=== PATIENT | male | born 1945 | race African-American/Black ===

== ENCOUNTER 2016-10-10 04:34 | Observation (INO) | payer OTHER ==
[2016-10-10] VITALS (9 sets, daily range): BP systolic 117–160; BP diastolic 74–101; PULSE 61–80; RESP 16–23; TEMP 97.6–98.4; O2SAT 97–99
[~2016-10-10] VITALS: Ht 182.9 cm; Wt 115.0 kg
[2016-10-10] MEDS ORDERED: LISI-515 PO (05:49)
[2016-10-10] MEDS ORDERED: ATOR40TA16 PO (05:49)
[2016-10-10] MEDS ORDERED: ASPI1TAB69 PO (05:49)
[2016-10-10] MEDS ORDERED: AMLO10TA2 PO (05:49)
[2016-10-10] MEDS ORDERED: CARV25TA PO (05:49)
[2016-10-10] MEDS ORDERED: ONDANSETRON HCL 4 MG/2 ML VIAL IVP ONE (06:00)
[2016-10-10] MEDS ORDERED: SODIUM CHLORIDE 0.9% FLUSH 5 ML FLUSH IVF PRN (06:00)
--- NOTE | 2016-10-10 06:07 | PD ---
HPI Chief Complaint: Abdominal Pain Time Seen by Provider: 06:01 Travel History International Travel<30 days: No Contact w/Intl Traveler<30days: No Traveled to known affect area: No History of Present Illness HPI 71-year-old male with history of previous NH, presents to the ER today for 2 days history of her umbilical abdominal pain which he currently rates at a 7 out of 10, nausea and vomiting. He denies any diarrhea, fevers, or any other symptoms. He does not know any exacerbating or alleviating factors. He does not know sick contacts or bad food exposure. Modifying Factors: None Associated Signs & Symptoms: Periumbilical abdominal pain, nausea, vomiting Risk Factors: None PFSH Past Medical History Medical History: Denies Significant Hx Cardiovascular Problems: Yes (BRADYCARDIA) High Cholesterol: Yes Diminished Hearing: No Hypertension: Yes Myocardial Infarction: Yes Tetanus Vaccination: Unknown Influenza Vaccination: No Past Surgical History Abdominal Surgery: Yes (EXPLOR. LAP.) Cardiac Surgery: Yes (PACEMAKER) Neurologic Surgery: Yes (L5 FUSION) Social History Alcohol Use: No Tobacco Use: No Substance Use: No Allergies-Medications (Allergen,Severity, Reaction): Coded Allergies: No Known Allergies (Unverified , 10/10/16) Reported Meds & Prescriptions Reported Meds & Active Scripts Active Reported Atorvastatin (Atorvastatin Calcium) 40 Mg Tab 40 Mg PO HS Amlodipine (Amlodipine Besylate) 10 Mg Tab 10 Mg PO DAILY Carvedilol 25 Mg Tab 25 Mg PO BID Aspirin 81 Mg Tabdr 81 Mg PO DAILY Lisinopril 20 Mg Tab 20 Mg PO DAILY Review of Systems Except as stated in HPI: all other systems reviewed are Neg Physical Exam Narrative GENERAL: Well-nourished, well-developed elderly -[place] Citizen male patient in no acute distress. SKIN: Warm and dry. HEAD: Normocephalic. EYES: No scleral icterus. No injection or drainage. NECK: Supple, trachea midline. CARDIOVASCULAR: Regular rate and rhythm without murmurs, gallops, or rubs. RESPIRATORY: Breath sounds equal bilaterally. No accessory muscle use. GASTROINTESTINAL: Abdomen soft, periumbilical tenderness without guarding or rebound, nondistended. No masses. MUSCULOSKELETAL: No cyanosis, or edema. BACK: Nontender without obvious deformity. No CVA tenderness. NEUROLOGICAL: Awake and alert. Cranial nerves II through XII intact. Motor and sensory grossly within normal limits. Five out of 5 muscle strength in all muscle groups. Normal speech. Data Data Last Documented VS Vital Signs Date Time Temp Pulse Resp B/P Pulse Ox O2 Delivery O2 Flow Rate FiO2 10/10/16 06:15 62 16 128/90 98 Room Air 10/10/16 04:37 97.6 Orders Complete Blood Count With Diff (10/10/16 05:52) Comprehensive Metabolic Panel (10/10/16 05:52) Lipase (10/10/16 05:52) Urinalysis - C+S If Indicated (10/10/16 05:52) Iv Access Insert/Monitor (10/10/16 05:52) Ecg Monitoring (10/10/16 05:52) Oximetry (10/10/16 05:52) Ondansetron Inj (Zofran Inj) (10/10/16 06:00) Sodium Chloride 0.9% Flush (Ns Flush) (10/10/16 06:00) Electrocardiogram (10/10/16 05:52) Sodium Chlorid 0.9% 500 Ml Inj (Ns 500 M (10/10/16 06:15) Ct Abd/Pel W Iv Contrast(Rout) (10/10/16 06:01) Beta Hydroxybutyrate (Acetone) (10/10/16 06:40) Insulin Human Regular Inj (Novolin R Inj (10/10/16 06:45) Labs Laboratory Tests Test 10/10/16 05:55 White Blood Count 12.6 TH/MM3 Red Blood Count 5.41 MIL/MM3 Hemoglobin 16.4 GM/DL Hematocrit 47.2 % Mean Corpuscular Volume 87.2 FL Mean Corpuscular Hemoglobin 30.3 PG Mean Corpuscular Hemoglobin 34.7 % Concent Red Cell Distribution Width 14.1 % Platelet Count 217 TH/MM3 Mean Platelet Volume 9.7 FL Neutrophils (%) (Auto) 88.2 % Lymphocytes (%) (Auto) 8.0 % Monocytes (%) (Auto) 3.4 % Eosinophils (%) (Auto) 0.1 % Basophils (%) (Auto) 0.3 % Neutrophils # (Auto) 11.1 TH/MM3 Lymphocytes # (Auto) 1.0 TH/MM3 Monocytes # (Auto) 0.4 TH/MM3 Eosinophils # (Auto) 0.0 TH/MM3 Basophils # (Auto) 0.0 TH/MM3 CBC Comment DIFF FINAL Differential Comment Sodium Level 136 MEQ/L Potassium Level 4.7 MEQ/L Chloride Level 100 MEQ/L Carbon Dioxide Level 24.0 MEQ/L Anion Gap 12 MEQ/L Blood Urea Nitrogen 18 MG/DL Creatinine 1.47 MG/DL Estimat Glomerular Filtration 57 ML/MIN Rate Random Glucose 459 MG/DL Calcium Level 9.5 MG/DL Total Bilirubin 1.0 MG/DL Aspartate Amino Transf 12 U/L (AST/SGOT) Alanine Aminotransferase 21 U/L (ALT/SGPT) Alkaline Phosphatase 145 U/L Total Protein 8.2 GM/DL Albumin 4.3 GM/DL Lipase 173 U/L [facility] Medical Decision Making Medical Screen Exam Complete: Yes Emergency Medical Condition: Yes Medical Record Reviewed: Yes Interpretation(s) EKG shows a paced rhythm at a rate of 66 bpm with no signs of acute ST-T changes. Laboratory Tests Test 10/10/16 05:55 White Blood Count 12.6 TH/MM3 (4.0-11.0) Neutrophils (%) (Auto) 88.2 % (16.0-70.0) Lymphocytes (%) (Auto) 8.0 % (9.0-44.0) Neutrophils # (Auto) 11.1 TH/MM3 (1.8-7.7) Creatinine 1.47 MG/DL (0.60-1.30) Estimat Glomerular Filtration 57 ML/MIN (>89) Rate Random Glucose 459 MG/DL (74-106) Aspartate Amino Transf 12 U/L (15-37) (AST/SGOT) Alkaline Phosphatase 145 U/L (45-117) Differential Diagnosis Periumbilical abdominal pain with nausea and vomitinggastroenteritis versus gastritis versus pancreatitis versus obstruction versus acute intra-abdominal processes Narrative Course Lab work shows significant hyperglycemia. IV fluids and insulin was given to the patient. He has no previous history of diabetes. CAT scan was ordered for further evaluation of abdominal pain. Physician Communication Physician Communication Case is signed out to Dr. Holliday at 7 AM awaiting CAT scan for further treatment. Diagnosis Primary Impression: HYPERGLYCEMIA, UNSPECIFIED Additional Impression: Abdominal pain Admitting Information Admitting Physician Requests: Admit Britt Thornton MD Oct 10, 2016 06:07
[2016-10-10 06:15] LABS: AUTOMATED NEUTROPHIL # 11.1 TH/MM3 (1.8-7.7); BASOPHIL % 0.3 % (0.0-2.0); EOSINOPHIL % 0.1 % (0.0-4.0); HEMATOCRIT 47.2 % (39.0-51.0); HEMO FLAGS DIFF FINAL; MEAN CELL VOLUME 87.2 FL (80.0-100.0); MEAN CORPUSCULAR HEMOGLOBIN 30.3 PG (27.0-34.0); MEAN CORPUSCULAR HGB CONC 34.7 % (32.0-36.0); MONO % 3.4 % (0.0-8.0); NEUT % 88.2 % (16.0-70.0); PLATELET COUNT 217 TH/MM3 (150-450); RED BLOOD COUNT 5.41 MIL/MM3 (4.50-5.90); RED CELL DISTRIBUTION WIDTH 14.1 % (11.6-17.2); WHITE BLOOD COUNT 12.6 TH/MM3 (4.0-11.0)
[2016-10-10] MEDS ORDERED: SODIUM CHLORID 0.9% 500 ML INJ 500 ML IV ONE (06:15)
[2016-10-10 06:40] LABS: ALKALINE PHOSPHATASE 145 U/L (45-117); ALT (GPT) 21 U/L (12-78); ANION GAP 12 MEQ/L (5-15); AST (GOT) 12 U/L (15-37); BLOOD UREA NITROGEN 18 MG/DL (7-18); CHLORIDE 100 MEQ/L (98-107); GLOMERULAR FILTRATION RATE 57 ML/MIN (>89); POTASSIUM 4.7 MEQ/L (3.5-5.1); SODIUM (NA) 136 MEQ/L (136-145)
[2016-10-10] MEDS ORDERED: INSULIN HUMAN REGULAR 1,000 UNITS/10 ML VIAL IV PUSH ONE (06:45)
[2016-10-10] MEDS ORDERED: IOHEXOL 350 MG/ML 10 ML VIAL (for RAD DIAG) IV ONE (07:25)
--- NOTE | 2016-10-10 07:42 | RADRPT ---
EXAM DATE/TIME: 10/10/2016 07:20 [place] COMPARISON: No previous studies available for comparison. INDICATIONS : Mid abdominal pain and vomiting for 1 day IV CONTRAST: 93 cc Omnipaque 350 (iohexol) IV ORAL CONTRAST: No oral contrast ingested. RADIATION DOSE: 16.94 CTDIvol (mGy) MEDICAL HISTORY : Hypertension. SURGICAL HISTORY : Pacemaker. lumbar fusion ENCOUNTER: Initial ACUITY: 1 day PAIN SCALE: 5/10 LOCATION: upper quadrant abdomen TECHNIQUE: Volumetric scanning of the abdomen and pelvis was performed. Using automated exposure control and ad justment of the mA and/or kV according to patient size, radiation dose was kept as low as reasonably achievable to obtain optimal diagnostic quality images. FINDINGS: LOWER LUNGS: The visualized lower lungs are clear. Pacing wires are present in the right heart. LIVER: Liver density is suggestive of steatosis. No focal lesion is seen. There are stones in the gallbladde r. There is no dilation of the biliary tree. No calcified gallstones. SPLEEN: Normal size without lesion. PANCREAS: Within normal limits. KIDNEYS: Normal in size and shape. There is no mass, stone or hydronephrosis. There is a 4.3 cm low-density l esion the left kidney with density measurements characteristic of a simple cyst. ADRENAL GLANDS: There is mild thickening of the adrenal glands bilaterally with a hypodense nodule in the left body m easuring 8 mm. Hounsfield measurements are 31. VASCULAR: There is no aortic aneurysm. There is mild atherosclerotic disease. BOWEL/MESENTERY: The stomach and proximal small bowel demonstrate no abnormality. There is a segmental area of distal jejunum or proximal ileum in the pelvis measuring up to 2.9 cm. Distal ileum is normal in size. Termi nal ileum and appendix are normal. There is mild sigmoid diverticulosis. There is no free air or free fluid. ABDOMINAL WALL: There is a metallic foreign body along the right anterior abdominal wall measuring approximately 2.1 cm. RETROPERITONEUM: There is no lymphadenopathy. BLADDER: No wall thickening or mass. REPRODUCTIVE: Within normal limits. INGUINAL: There is no lymphadenopathy or hernia. MUSCULOSKELETAL: There are degenerative changes of the lumbar spine with posterior element fusion inferiorly. Bone gra ft harvest site is present in the left posterior iliac bone. CONCLUSION: 1. No definite abnormality is identified to explain clinical symptoms. There is a segmental area of m ildly distended fluid-filled small bowel in the pelvis representing either distal jejunum or proximal ileum. However, there are no other findings otherwise to suggest bowel obstruction. Suggest performi ng followup imaging if clinical symptoms do not resolve. 2. There is an 8mm nodule the left adrenal gland. The small size strongly favors a benign process. It does not meet criteria for an adenoma on this examination. Suggest correlation with prior imaging st udies to confirm stability. If none are available consider followup in 6 months. 3. Nonacute findings include hepatic steatosis, cholelithiasis, 4.3 cm left renal cyst, and mild sigm oid diverticulosis. Emile Bermudez MD on October 10, 2016 at 7:33 Board Certified Radiologist. This report was verified electronically.
[2016-10-10 07:44] LABS: BLOOD, URINE NEG (NEG); GLUCOSE,URINE 1000 mg/dL (NEG); KETONE, URINE 40 mg/dL (NEG); NITRITE,URINE NEG (NEG); URINE COLOR YELLOW (YELLW/STRAW)
[2016-10-10 07:46] LABS: COMMENT (UR) CULT NOT INDICATED; CULTURE IF INDICATED CULT NOT INDICATED
--- NOTE | 2016-10-10 07:58 | PD ---
Physical Exam Narrative GENERAL: Well-nourished, well-developed patient. SKIN: Warm and dry. HEAD: Normocephalic and atraumatic. EYES: No injection or drainage. ENT: No nasal drainage noted. NECK: Supple, trachea midline. CARDIOVASCULAR: Regular rate and rhythm RESPIRATORY: no increased effort. No accessory muscle use. GASTROINTESTINAL: Abdomen soft, non-tender, nondistended. NEUROLOGICAL: Awake and alert. Motor and sensory grossly within normal limits. Normal speech. Data Data Last Documented VS Vital Signs Date Time Temp Pulse Resp B/P Pulse Ox O2 Delivery O2 Flow Rate FiO2 10/10/16 06:15 62 16 128/90 98 Room Air 10/10/16 04:37 97.6 Orders Complete Blood Count With Diff (10/10/16 05:52) Comprehensive Metabolic Panel (10/10/16 05:52) Lipase (10/10/16 05:52) Urinalysis - C+S If Indicated (10/10/16 05:52) Iv Access Insert/Monitor (10/10/16 05:52) Ecg Monitoring (10/10/16 05:52) Oximetry (10/10/16 05:52) Ondansetron Inj (Zofran Inj) (10/10/16 06:00) Sodium Chloride 0.9% Flush (Ns Flush) (10/10/16 06:00) Electrocardiogram (10/10/16 05:52) Sodium Chlorid 0.9% 500 Ml Inj (Ns 500 M (10/10/16 06:15) Ct Abd/Pel W Iv Contrast(Rout) (10/10/16 06:01) Beta Hydroxybutyrate (Acetone) (10/10/16 06:40) Insulin Human Regular Inj (Novolin R Inj (10/10/16 06:45) Iohexol 350 Inj (Omnipaque 350 Inj) (10/10/16 07:25) Blood Glucose (10/10/16 07:50) Admit Order (Ed Use Only) (10/10/16 08:13) Labs Laboratory Tests Test 10/10/16 10/10/16 10/10/16 05:55 07:00 07:01 White Blood Count 12.6 TH/MM3 Red Blood Count 5.41 MIL/MM3 Hemoglobin 16.4 GM/DL Hematocrit 47.2 % Mean Corpuscular Volume 87.2 FL Mean Corpuscular Hemoglobin 30.3 PG Mean Corpuscular Hemoglobin 34.7 % Concent Red Cell Distribution Width 14.1 % Platelet Count 217 TH/MM3 Mean Platelet Volume 9.7 FL Neutrophils (%) (Auto) 88.2 % Lymphocytes (%) (Auto) 8.0 % Monocytes (%) (Auto) 3.4 % Eosinophils (%) (Auto) 0.1 % Basophils (%) (Auto) 0.3 % Neutrophils # (Auto) 11.1 TH/MM3 Lymphocytes # (Auto) 1.0 TH/MM3 Monocytes # (Auto) 0.4 TH/MM3 Eosinophils # (Auto) 0.0 TH/MM3 Basophils # (Auto) 0.0 TH/MM3 CBC Comment DIFF FINAL Differential Comment Sodium Level 136 MEQ/L Potassium Level 4.7 MEQ/L Chloride Level 100 MEQ/L Carbon Dioxide Level 24.0 MEQ/L Anion Gap 12 MEQ/L Blood Urea Nitrogen 18 MG/DL Creatinine 1.47 MG/DL Estimat Glomerular Filtration 57 ML/MIN Rate Random Glucose 459 MG/DL Calcium Level 9.5 MG/DL Total Bilirubin 1.0 MG/DL Aspartate Amino Transf 12 U/L (AST/SGOT) Alanine Aminotransferase 21 U/L (ALT/SGPT) Alkaline Phosphatase 145 U/L Total Protein 8.2 GM/DL Albumin 4.3 GM/DL Lipase 173 U/L Urine Color YELLOW Urine Turbidity CLEAR Urine pH 6.0 Urine Specific [place] 1.035 Urine Protein TRACE mg/dL Urine Glucose (UA) 1000 mg/dL Urine Ketones 40 mg/dL Urine Occult Blood NEG Urine Nitrite NEG Urine Bilirubin NEG Urine Urobilinogen LESS THAN 2.0 MG/DL Urine Leukocyte Esterase NEG Urine RBC LESS THAN 1 /hpf Urine WBC 1 /hpf Microscopic Urinalysis Comment CULT NOT INDICATED B-Hydroxybutyrate 1.81 MMOL/L [facility] Supervised Visit with JUSTIN: No Interpretation(s) CBC & BMP Diagram 10/10/16 05:55 Last 24 hours Impressions Abdomen/Pelvis CT 10/10/16 0601 Signed Impressions: Service Date/Time: Monday, October 10, 2016 07:20 - CONCLUSION: 1. No definite abnormality is identified to explain clinical symptoms. There is a segmental area of mildly distended fluid-filled small bowel in the pelvis representing either distal jejunum or proximal ileum. However, there are no other findings otherwise to suggest bowel obstruction. Suggest performing followup imaging if clinical symptoms do not resolve. 2. There is an 8mm nodule the left adrenal gland. The small size strongly favors a benign process. It does not meet criteria for an adenoma on this examination. Suggest correlation with prior imaging studies to confirm stability. If none are available consider followup in 6 months. 3. Nonacute findings include hepatic steatosis, cholelithiasis, 4.3 cm left renal cyst, and mild sigmoid diverticulosis. Emile Bermudez MD Narrative Course Signed over to me to follow urine and CAT scan and admitted for new onset diabetes. Patient updated about blood work and CAT scan and agrees to observation. He denies prior history of diabetes. He states his abdominal pain is better. Repeat Accu-Chek after insulin is [address] Phys[address] Communication Phys[address] Communication dr serrano agrees to admit Diagnosis Primary Impression: HYPERGLYCEMIA, UNSPECIFIED Additional Impression: Abdominal pain Qualified Code: R10.9 - Abdominal pain, unspecified location Admitting Information Admitting Physician Requests: Observation Lindsay Holliday MD Oct 10, 2016 07:58
[2016-10-10] MEDS ORDERED: GLUCAGON 1 MG/ML VIAL OTHER PRN (08:15)
[2016-10-10] MEDS ORDERED: DEXTROSE 50% IN WATER 50 ML VIAL(D50) IV PUSH PRN (08:15)
--- NOTE | 2016-10-10 09:38 | EKG ---
Date Performed: 10/10/2016 Time Performed: 06:11:18 PTAGE: 71 years EKG: ELECTRONIC ATRIAL PACEMAKER ELECTRONIC VENTRICULAR PACEMAKER ABNORMAL RHYTHM ECG NO PREVIOUS TRACING DOCTOR: Ananth Aguirre Interpretating Date/Time 10/10/2016 09:35:46
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
[2016-10-10] MEDS: SODIUM CHLOR 0.9% 1000 ML INJ 1,000 ML IV SCH ×2 (10:54→19:00)
[2016-10-10] MEDS: LISINOPRIL 20 MG TAB PO SCH (11:17)
[2016-10-10] MEDS: ENOXAPARIN SODIUM 40 MG/0.4 ML SYRINGE SQ SCH (11:17)
[2016-10-10] MEDS: ASPIRIN EC 81 MG TABEC PO SCH (11:17)
[2016-10-10] MEDS: INSULIN ASPART SUPPLEMENTAL SCALE SQ SCH ×3 (11:18→22:11)
[2016-10-10] MEDS ORDERED: HYDR-3366 PO (15:27)
[2016-10-10] MEDS: ACETAMINOPHEN/HYDROcodone 325 MG/10 MG TAB PO PRN (18:03)
[2016-10-10] MEDS: CARVEDILOL 12.5 MG TAB PO SCH (22:05)
[2016-10-10] MEDS: ATORVASTATIN 40 MG TAB PO SCH (22:05)
[2016-10-11] VITALS (7 sets, daily range): BP systolic 101–132; BP diastolic 68–89; PULSE 64–83; RESP 14–21; TEMP 97.6–98.8; O2SAT 94–98
[2016-10-11] MEDS: SODIUM CHLOR 0.9% 1000 ML INJ 1,000 ML IV SCH ×2 (03:54→15:00)
[2016-10-11 05:33] LABS: AUTOMATED NEUTROPHIL # 5.4 TH/MM3 (1.8-7.7); BASOPHIL % 0.5 % (0.0-2.0); EOSINOPHIL # 0.2 TH/MM3 (0-0.4); EOSINOPHIL % 2.2 % (0.0-4.0); HEMATOCRIT 41.1 % (39.0-51.0); HEMO FLAGS DIFF FINAL; LYMPH % 25.2 % (9.0-44.0); LYMPHOCYTE # 2.2 TH/MM3 (1.0-4.8); MEAN CELL VOLUME 88.8 FL (80.0-100.0); MEAN CORPUSCULAR HEMOGLOBIN 30.5 PG (27.0-34.0); MEAN CORPUSCULAR HGB CONC 34.4 % (32.0-36.0); MONO % 9.3 % (0.0-8.0); NEUT % 62.8 % (16.0-70.0); PLATELET COUNT 183 TH/MM3 (150-450); RED BLOOD COUNT 4.63 MIL/MM3 (4.50-5.90); RED CELL DISTRIBUTION WIDTH 13.8 % (11.6-17.2); WHITE BLOOD COUNT 8.6 TH/MM3 (4.0-11.0)
[2016-10-11 05:49] LABS: POTASSIUM 4.1 MEQ/L (3.5-5.1)
[2016-10-11] MEDS: INSULIN ASPART SUPPLEMENTAL SCALE SQ SCH ×4 (06:20→20:54)
[2016-10-11] MEDS: ACETAMINOPHEN/HYDROcodone 325 MG/10 MG TAB PO PRN (06:25)
[2016-10-11] MEDS: ASPIRIN EC 81 MG TABEC PO SCH (09:29)
[2016-10-11] MEDS: LISINOPRIL 20 MG TAB PO SCH (09:29)
[2016-10-11] MEDS: CARVEDILOL 12.5 MG TAB PO SCH ×2 (09:30→20:53)
--- NOTE | 2016-10-11 12:28 | HHI.PR ---
Subjective Remarks overall doing fine. blood sugar levels still elevated. no abdominal pain,nausea or vomiting. d/w the RN. Objective Vitals Vital Signs Date Time Temp Pulse Resp B/P Pulse Ox O2 Delivery O2 Flow Rate FiO2 10/11/16 10:59 98.7 72 14 126/84 95 10/11/16 07:29 97.6 68 16 112/69 95 10/11/16 07:29 20 10/11/16 05:51 98.8 68 21 117/89 98 10/11/16 00:57 98.7 64 18 101/70 94 10/10/16 19:36 98.4 62 21 117/74 98 10/10/16 16:58 98.2 64 20 140/79 97 10/10/16 13:49 61 18 120/79 97 Room Air I/O 10/10/16 10/10/16 10/10/16 10/11/16 10/11/16 10/11/16 07:00 15:00 23:00 07:00 15:00 23:00 Output Total 300 ml Balance -300 ml Output Urine Total 300 ml # Voids 1 Result Diagram: 10/11/16 0419 10/11/16 0409 Imaging Last Impressions Abdomen/Pelvis CT 10/10/16 0601 Signed Impressions: Service Date/Time: Monday, October 10, 2016 07:20 - CONCLUSION: 1. No definite abnormality is identified to explain clinical symptoms. There is a segmental area of mildly distended fluid-filled small bowel in the pelvis representing either distal jejunum or proximal ileum. However, there are no other findings otherwise to suggest bowel obstruction. Suggest performing followup imaging if clinical symptoms do not resolve. 2. There is an 8mm nodule the left adrenal gland. The small size strongly favors a benign process. It does not meet criteria for an adenoma on this examination. Suggest correlation with prior imaging studies to confirm stability. If none are available consider followup in 6 months. 3. Nonacute findings include hepatic steatosis, cholelithiasis, 4.3 cm left renal cyst, and mild sigmoid diverticulosis. Emile Bermudez MD Objective Remarks GENERAL: This is a well-nourished, well-developed patient, in no apparent distress. CARDIOVASCULAR: Regular rate and regular rhythm without murmurs, gallops, or rubs. RESPIRATORY: Clear to auscultation. Breath sounds equal bilaterally. No wheezes , rales, or rhonchi. GASTROINTESTINAL: Abdomen soft, non-tender, nondistended. Normal, active bowel sounds MUSCULOSKELETAL: Extremities without clubbing, cyanosis, or edema. NEURO: Alert & Oriented x4 to person, place, time, situation. Moves all ext x4 Procedures none Medications and IVs Current Medications Ondansetron HCl (Zofran Inj) 4 mg ONCE ONCE IVP Last administered on 10/10/16 06:15; Start 10/10/16 at 06:00; Stop 10/10/16 at 06:01; Status DC IV Flush 2 ml 2 ml UNSCH PRN IVF FLUSH AFTER USING IV ACCESS; Start 10/10/16 at 06:00 Sodium Chloride (NS 500 ml Inj) 500 ml @ 500 mls/hr BOLUS ONCE IV Last administered on 10/10/16 06:15; Start 10/10/16 at 06:15; Stop 10/10/16 at 07:14; Status DC Insulin Human Regular (NovoLIN R INJ) 4 units ONCE ONCE IV PUSH Last administered on 10/10/16 06:50; Start 10/10/16 at 06:45; Stop 10/10/16 at 06:46; Status DC Iohexol (Omnipaque 350 Inj) 93 ml STK-MED ONCE IV Last administered on 07:25; Start 10/10/16 at 07:25; Stop 10/10/16 at 07:26; Status DC Dextrose (D50w (Vial) Inj) 25 ml UNSCH PRN IV PUSH HYPOGLYCEMIA-SEE COMMENTS; Start 10/10/16 at 08:15 Glucagon (Glucagon Inj) 1 mg UNSCH PRN OTHER HYPOGLYCEMIA-SEE COMMENTS; Start 10/10/16 at 08:15 Insulin Aspart 1 1 ACHS SLIDING SCALE SQ Last administered on 10/11/16 06:20; Start 10/10/16 at 11:00 Sodium Chloride (NS 1000 ml Inj) 1,000 ml @ 100 mls/hr Q10H IV Last administered on 10/10/16 10:54; Start 10/10/16 at 09:00 Amlodipine Besylate (Norvasc) 10 mg DAILY PO Last administered on 10/11/16 09: 29; Start 10/10/16 at 10:30 Aspirin (Ecotrin Ec) 81 mg DAILY PO Last administered on 10/11/16 09:29; Start 10/10/16 at 10:30 Atorvastatin Calcium (Lipitor) 40 mg HS PO Last administered on 10/10/16 22:05 ; Start 10/10/16 at 21:00 Carvedilol (Coreg) 25 mg BID PO Last administered on 10/11/16 09:30; Start 10/10 at 21:00 Lisinopril (Prinivil) 20 mg DAILY PO Last administered on 10/11/16 09:29; Start 10/10/16 at 11:00 Enoxaparin Sodium (Lovenox Inj) 40 mg Q24H SQ Last administered on 10/10/16 11: 17; Start 10/10/16 at 11:00 Acetaminophen/ Hydrocodone Bitart (Robert 10-325 Mg) 1 tab Q8H PRN PO PAIN SCALE 1 TO 10 Last administered on 10/11/16 06:25; Start 10/10/16 at 18:00 A/P Assessment and Plan New onset diabetes type 2 - Abdominal pain associated with nausea vomiting 2 days. Resolved on exam. - CT of the abdomen and pelvis showed 1. No definite abnormalities identified to explain clinical symptoms. There is a segmental area of mildly distended fluidfields small bowel in the pelvis representing either distal jejunum or proximal ileum. However, there are no other findings otherwise to suggest bowel obstruction. Suggest performing follow-up imaging if clinical symptoms do not resolve. 2. There is an 8 mL nodule in the left adrenal gland. The small size strongly favors a benign process. It does not meet criteria for an adenoma on this examination. Suggest correlation with prior imaging studies to confirm stability. If not available consider follow-up in 6 months. 3. Non-acute findings include hepatic steatosis, cholelithiasis, 4.3 cm left renal cyst, and mild sigmoid diverticulosis. -A1c 10.8. - community educator consulted -start long-acting insulin- continue accu-check with SSI. - Discussed with patient new diagnosis. Discussed risk factors secondary to diagnosis. Discussed treatment plan. Agreeable. renal insufficiency with unknown duration- suspect CKD due to diabetes- f/u as outpatient. HTN HLD - Continue home meds lisinopril 20 mg daily, carvedilol 25 mg twice a day, lisinopril 20 mg daily, amlodipine 10 mg daily, ASA 81 mg, atorvastatin 40 mg daily - Monitor BP trend - Patient being followed by Dr. Brooks and Dr. Resendiz in outpatient DVT prop Lovenox daily Discharge Planning possible dc home in am if stable. Trace Hidalgo MD Oct 11, 2016 12:28
[2016-10-11] MEDS ORDERED: NOVOLOGSS SQ (12:30)
[2016-10-11] MEDS: ENOXAPARIN SODIUM 40 MG/0.4 ML SYRINGE SQ SCH (12:33)
--- NOTE | 2016-10-11 12:35 | HHI.DCPOC ---
Discharge Care Plan Diagnosis: (1) New onset type 2 diabetes mellitus Your Health Problems Are: Fluctuating Blood Sugars Goals to Promote Your Health * To prevent worsening of your condition and complications * To maintain your health at the optimal level Directions to Meet Your Goals Take your medications as prescribed Follow your dietary instruction Follow activity as directed Keep your appointments as scheduled Take your immunizations and boosters as scheduled If your symptoms worsen call your PCP, if no PCP go to Urgent Care Center or Emergency Room Smoking is Dangerous to Your Health. Avoid second hand smoke Call the 24-hour hour crisis hotline for domestic abuse at Trace Hidalgo MD Oct 11, 2016 12:35
[2016-10-11] MEDS: INSULIN DETEMIR 100 UNITS/ML VIAL SQ SCH (14:38)
[2016-10-11] MEDS ORDERED: DOCUSATE SODIUM 100 MG CAP PO PRN (15:15)
[2016-10-11] MEDS ORDERED: MAGNESIUM HYDROXIDE SUSP 30 ML CUP PO PRN (15:15)
[2016-10-11] MEDS: ATORVASTATIN 40 MG TAB PO SCH (20:53)
[2016-10-12 03:45] VITALS: BP 132/85; PULSE 65; TEMP 98; O2SAT 95
[2016-10-12] MEDS: SODIUM CHLOR 0.9% 1000 ML INJ 1,000 ML IV SCH (05:29)
[2016-10-12] MEDS: INSULIN ASPART SUPPLEMENTAL SCALE SQ SCH ×2 (06:38→11:56)
[2016-10-12 07:08] VITALS: BP 135/87; PULSE 72; RESP 18; TEMP 98.1; O2SAT 96
[2016-10-12] MEDS: ASPIRIN EC 81 MG TABEC PO SCH (08:32)
[2016-10-12] MEDS: LISINOPRIL 20 MG TAB PO SCH (08:32)
[2016-10-12] MEDS: INSULIN DETEMIR 100 UNITS/ML VIAL SQ SCH (08:32)
[2016-10-12] MEDS: CARVEDILOL 12.5 MG TAB PO SCH (08:32)
[2016-10-12] MEDS: ACETAMINOPHEN/HYDROcodone 325 MG/10 MG TAB PO PRN (08:44)
--- NOTE | 2016-10-12 10:42 | HHI.PR ---
Subjective Remarks overall doing fine. no new complaints. wants to go home today. Objective Vitals Vital Signs Date Time Temp Pulse Resp B/P Pulse Ox O2 Delivery O2 Flow Rate FiO2 10/12/16 09:46 16 10/12/16 07:08 98.1 72 18 135/87 96 10/12/16 03:45 98.0 65 132/85 95 10/11/16 23:02 67 116/68 96 10/11/16 19:18 83 21 132/86 95 10/11/16 15:06 98.6 69 14 105/70 95 10/11/16 10:59 98.7 72 14 126/84 95 Result Diagram: 10/11/16 0419 10/12/16 0825 Imaging Last Impressions Abdomen/Pelvis CT 10/10/16 0601 Signed Impressions: Service Date/Time: Monday, October 10, 2016 07:20 - CONCLUSION: 1. No definite abnormality is identified to explain clinical symptoms. There is a segmental area of mildly distended fluid-filled small bowel in the pelvis representing either distal jejunum or proximal ileum. However, there are no other findings otherwise to suggest bowel obstruction. Suggest performing followup imaging if clinical symptoms do not resolve. 2. There is an 8mm nodule the left adrenal gland. The small size strongly favors a benign process. It does not meet criteria for an adenoma on this examination. Suggest correlation with prior imaging studies to confirm stability. If none are available consider followup in 6 months. 3. Nonacute findings include hepatic steatosis, cholelithiasis, 4.3 cm left renal cyst, and mild sigmoid diverticulosis. Emile Bermudez MD Objective Remarks GENERAL: This is a well-nourished, well-developed patient, in no apparent distress. CARDIOVASCULAR: Regular rate and regular rhythm without murmurs, gallops, or rubs. RESPIRATORY: Clear to auscultation. Breath sounds equal bilaterally. No wheezes , rales, or rhonchi. GASTROINTESTINAL: Abdomen soft, non-tender, nondistended. Normal, active bowel sounds MUSCULOSKELETAL: Extremities without clubbing, cyanosis, or edema. NEURO: Alert & Oriented x4 to person, place, time, situation. Moves all ext x4 Procedures none Medications and IVs Current Medications Ondansetron HCl (Zofran Inj) 4 mg ONCE ONCE IVP Last administered on 10/10/16 06:15; Start 10/10/16 at 06:00; Stop 10/10/16 at 06:01; Status DC IV Flush 2 ml 2 ml UNSCH PRN IVF FLUSH AFTER USING IV ACCESS; Start 10/10/16 at 06:00 Sodium Chloride (NS 500 ml Inj) 500 ml @ 500 mls/hr BOLUS ONCE IV Last administered on 10/10/16 06:15; Start 10/10/16 at 06:15; Stop 10/10/16 at 07:14; Status DC Insulin Human Regular (NovoLIN R INJ) 4 units ONCE ONCE IV PUSH Last administered on 10/10/16 06:50; Start 10/10/16 at 06:45; Stop 10/10/16 at 06:46; Status DC Iohexol (Omnipaque 350 Inj) 93 ml STK-MED ONCE IV Last administered on 07:25; Start 10/10/16 at 07:25; Stop 10/10/16 at 07:26; Status DC Dextrose (D50w (Vial) Inj) 25 ml UNSCH PRN IV PUSH HYPOGLYCEMIA-SEE COMMENTS; Start 10/10/16 at 08:15 Glucagon (Glucagon Inj) 1 mg UNSCH PRN OTHER HYPOGLYCEMIA-SEE COMMENTS; Start 10/10/16 at 08:15 Insulin Aspart 1 1 ACHS SLIDING SCALE SQ Last administered on 10/12/16 06:38; Start 10/10/16 at 11:00 Sodium Chloride (NS 1000 ml Inj) 1,000 ml @ 100 mls/hr Q10H IV Last administered on 10/12/16 05:29; Start 10/10/16 at 09:00 Amlodipine Besylate (Norvasc) 10 mg DAILY PO Last administered on 10/12/16 08: 32; Start 10/10/16 at 10:30 Aspirin (Ecotrin Ec) 81 mg DAILY PO Last administered on 10/12/16 08:32; Start 10/10/16 at 10:30 Atorvastatin Calcium (Lipitor) 40 mg HS PO Last administered on 10/11/16 20:53 ; Start 10/10/16 at 21:00 Carvedilol (Coreg) 25 mg BID PO Last administered on 10/12/16 08:32; Start 10/10 at 21:00 Lisinopril (Prinivil) 20 mg DAILY PO Last administered on 10/12/16 08:32; Start 10/10/16 at 11:00 Enoxaparin Sodium (Lovenox Inj) 40 mg Q24H SQ Last administered on 10/11/16 12: 33; Start 10/10/16 at 11:00 Acetaminophen/ Hydrocodone Bitart ([place]ris 10-325 Mg) 1 tab Q8H PRN PO PAIN SCALE 1 TO 10 Last administered on 10/12/16 08:44; Start 10/10/16 at 18:00 Insulin Detemir (Levemir Inj) 15 units DAILY SQ Last administered on 10/12/16 08:32; Start 10/11/16 at 13:00 Magnesium Hydroxide (Milk Of Dulce Liq) 30 ml DAILY PRN PO CONSTIPATION-USE FIRST Last administered on 10/11/16 15:10; Start 10/11/16 at 15:15 Docusate Sodium (Colace) 100 mg BID PRN PO CONSTIPATION Last administered on 15:11; Start 10/11/16 at 15:15 A/P Assessment and Plan New onset diabetes type 2 - Abdominal pain associated with nausea vomiting 2 days. Resolved on exam. - CT of the abdomen and pelvis showed 1. No definite abnormalities identified to explain clinical symptoms. There is a segmental area of mildly distended fluidfields small bowel in the pelvis representing either distal jejunum or proximal ileum. However, there are no other findings otherwise to suggest bowel obstruction. Suggest performing follow-up imaging if clinical symptoms do not resolve. 2. There is an 8 mL nodule in the left adrenal gland. The small size strongly favors a benign process. It does not meet criteria for an adenoma on this examination. Suggest correlation with prior imaging studies to confirm stability. If not available consider follow-up in 6 months. 3. Non-acute findings include hepatic steatosis, cholelithiasis, 4.3 cm left renal cyst, and mild sigmoid diverticulosis. -A1c 10.8. - paraeducator consulted -started long-acting insulin- continue accu-check with SSI. - Discussed with patient new diagnosis. Discussed risk factors secondary to diagnosis. Discussed treatment plan. Agreeable. -advised to lose weight/ follow the diabetic diet and monitor his blood sugar at home closely. renal insufficiency with unknown duration-improved- f/u as outpatient. HTN HLD - Continue home meds lisinopril 20 mg daily, carvedilol 25 mg twice a day, lisinopril 20 mg daily, amlodipine 10 mg daily, ASA 81 mg, atorvastatin 40 mg daily - Monitor BP trend - Patient being followed by Dr. Brooks and Dr. Resendiz in outpatient DVT prop Lovenox daily Discharge Planning dc home today. f/u; pcp. see med list. d/w the patient. Trace Hidalgo MD Oct 12, 2016 10:42
[2016-10-12] MEDS ORDERED: LEVEMIR SQ (10:44)
--- NOTE | 2016-10-12 10:45 | HHI.DS ---
Discharge Summary Admission Date Oct 10, 2016 at 08:15 Discharge Date: Oct 12, 2016 Admitting Diagnosis new onset diabetes, abdominal pain (1) Abdominal pain ICD Code: R10.9 Diagnosis: Principal (2) New onset type 2 diabetes mellitus ICD Code: E11.9 Diagnosis: Principal Procedures none Brief History - From Admission Patient is a 71-year-old male with primary medical history of hypertension, hyperlipidemia who came into the hospital for complaints of abdominal pain. States that abdominal pain started yesterday about 5:30 PM, he took some laxative and states it didn't help with the pain. He started vomiting at around 7 PM, last vomited at 4 AM prior to coming to the hospital. Abdominal pain is described as midepigastric, constant, nonradiating, not aggravated by movement, unrelieved by rest. Patient never radiates into the past 6 months he has been voiding continuously every day, he could barely make it to the bathroom. States he is leaking. He is planning to see his PCP and check his prostate. He also complains of being thirsty all the time. Denies any weight loss states he has been the same weight the whole entire time. Appetite is good and has been eating well. On exam, patient states his abdominal pain has been relieved, he has not vomited since he got to the hospital. He also denies any nausea on exam. Denies pain and discomfort. Denies SOB/ dyspnea. Denies chest pain, palpitations, headaches, dizziness. Denies fevers, chills, n/v/d. Denies dysuria, hematuria, hematemesis. Denies vision changes, hearing changes. CBC/BMP: 10/11/16 0419 10/12/16 0825 Significant Findings Laboratory Tests Test 10/10/16 10/10/16 10/10/16 10/11/16 05:55 07:00 07:01 04:09 White Blood Count 12.6 TH/MM3 (4.0-11.0) Neutrophils (%) (Auto) 88.2 % (16.0-70.0) Lymphocytes (%) (Auto) 8.0 % (9.0-44.0) Neutrophils # (Auto) 11.1 TH/MM3 (1.8-7.7) Creatinine 1.47 MG/DL 1.56 MG/DL (0.60-1.30) (0.60-1.30) Estimat Glomerular Filtration 57 ML/MIN (>89) 53 ML/MIN (>89) Rate Random Glucose 459 MG/DL 357 MG/DL (74-106) (74-106) Hemoglobin A1c 10.8 % (4.3-6.0) Aspartate Amino Transf 12 U/L (15-37) (AST/SGOT) Alkaline Phosphatase 145 U/L (45-117) Urine Glucose (UA) 1000 mg/dL (NEG) Urine Ketones 40 mg/dL (NEG) B-Hydroxybutyrate 1.81 MMOL/L (0.00-0.39) Blood Urea Nitrogen 19 MG/DL (7-18) Calcium Level 8.1 MG/DL (8.5-10.1) Test 10/11/16 10/12/16 04:19 08:25 Monocytes (%) (Auto) 9.3 % (0.0-8.0) Estimat Glomerular Filtration 75 ML/MIN (>89) Rate Imaging Last Impressions Abdomen/Pelvis CT 10/10/16 0601 Signed Impressions: Service Date/Time: Monday, October 10, 2016 07:20 - CONCLUSION: 1. No definite abnormality is identified to explain clinical symptoms. There is a segmental area of mildly distended fluid-filled small bowel in the pelvis representing either distal jejunum or proximal ileum. However, there are no other findings otherwise to suggest bowel obstruction. Suggest performing followup imaging if clinical symptoms do not resolve. 2. There is an 8mm nodule the left adrenal gland. The small size strongly favors a benign process. It does not meet criteria for an adenoma on this examination. Suggest correlation with prior imaging studies to confirm stability. If none are available consider followup in 6 months. 3. Nonacute findings include hepatic steatosis, cholelithiasis, 4.3 cm left renal cyst, and mild sigmoid diverticulosis. Emile Bermudez MD PE at Discharge GENERAL: This is a well-nourished, well-developed patient, in no apparent distress. CARDIOVASCULAR: Regular rate and regular rhythm without murmurs, gallops, or rubs. RESPIRATORY: Clear to auscultation. Breath sounds equal bilaterally. No wheezes , rales, or rhonchi. GASTROINTESTINAL: Abdomen soft, non-tender, nondistended. Normal, active bowel sounds MUSCULOSKELETAL: Extremities without clubbing, cyanosis, or edema. NEURO: Alert & Oriented x4 to person, place, time, situation. Moves all ext x4 Hospital Course New onset diabetes type 2 - Abdominal pain associated with nausea vomiting 2 days. Resolved on exam. - CT of the abdomen and pelvis showed 1. No definite abnormalities identified to explain clinical symptoms. There is a segmental area of mildly distended fluidfields small bowel in the pelvis representing either distal jejunum or proximal ileum. However, there are no other findings otherwise to suggest bowel obstruction. Suggest performing follow-up imaging if clinical symptoms do not resolve. 2. There is an 8 mL nodule in the left adrenal gland. The small size strongly favors a benign process. It does not meet criteria for an adenoma on this examination. Suggest correlation with prior imaging studies to confirm stability. If not available consider follow-up in 6 months. 3. Non-acute findings include hepatic steatosis, cholelithiasis, 4.3 cm left renal cyst, and mild sigmoid diverticulosis. -A1c 10.8. - unit educator consulted -started long-acting insulin- continue accu-check with SSI. - Discussed with patient new diagnosis. Discussed risk factors secondary to diagnosis. Discussed treatment plan. Agreeable. -advised to lose weight/ follow the diabetic diet and monitor his blood sugar at home closely. renal insufficiency with unknown duration-improved- f/u as outpatient. HTN HLD - Continue home meds lisinopril 20 mg daily, carvedilol 25 mg twice a day, lisinopril 20 mg daily, amlodipine 10 mg daily, ASA 81 mg, atorvastatin 40 mg daily - Monitor BP trend - Patient being followed by Dr. Brooks and Dr. Resendiz in outpatient DVT prop Lovenox daily Pt Condition on Discharge: Good Discharge Disposition: Discharge Home Discharge Time: <= 30 minutes Discharge Instructions DIET: Follow Instructions for: Heart Healthy Diet, Diabetic Diet Activities you can perform: Regular-No Restrictions Follow up Referrals: PCP Follow-up New Medications: Insulin Aspart Inj (Novolog Inj) 100 Unit/Ml Inj 1 UNITS SQ ACHS SLIDING SCALE accu-check AC/HS with Novolog sliding scale coverage; 150-200 two units 201-250 four units 251-300 six units 301-350 eight units 351-400 ten units inform PCP if < 70 or > 400. diabetes Days 30 Ref 0 INJECTION Insulin Detemir Inj (Levemir Inj) 1,000 unit/ 10 ML Vial 15 UNITS SQ DAILY diabetes Days 30 Ref 0 INJECTION Continued Medications: Amlodipine (Amlodipine) 10 Mg Tab 10 MG PO DAILY Blood Pressure Management #30 Ref 0 TAB Aspirin (Aspirin) 81 Mg Tabdr 81 MG PO DAILY TAB Atorvastatin (Atorvastatin) 40 Mg Tab 40 MG PO HS Cholesterol Management #30 Ref 0 TAB Carvedilol (Carvedilol) 25 Mg Tab 25 MG PO BID #60 Ref 0 TAB Hydrocodone-Acetaminophen ([place]) 10-325 Mg Tab 1 TAB PO TID PRN PAIN Ref 0 TAB Lisinopril (Lisinopril) 20 Mg Tab 20 MG PO DAILY #30 Ref 0 TAB Trace Hidalgo MD Oct 12, 2016 10:45
[2016-10-12 11:14] VITALS: BP 108/73; PULSE 60; RESP 14; TEMP 98; O2SAT 96
--- NOTE | 2016-10-12 12:14 | HHI.PR ---
Addendum To [facility] Progress Not Reason for addendum: Additonal documentation (notified by the RN that accu- check was 400. patient was advised to stay a few mour hrs to repeat the accu- check after insulin administration. howerver he wants to go home. reportedly had some orange juice this morning which could explain the elevated blood sugar. patient will be discharged on long and short-acting insuluin and close f/ u with his pcp. d/w the RN.) Trace Hidalgo MD Oct 12, 2016 12:14
== END 2016-10-12 12:57 | disposition home or self-care (01) ==
LOC: NEPC 04:34 → NEDA 08:15 → NEPFCDU 15:05
PROVIDERS: ADMIT Internal Medicine; ATTEND Internal Medicine
DX: E11.65 Type 2 diabetes mellitus with hyperglycemia (principal); R10.9 Unspecified abdominal pain; I10 Essential (primary) hypertension; E78.5 Hyperlipidemia, unspecified; R11.2 Nausea with vomiting, unspecified; R00.1 Bradycardia, unspecified; E78.00 Pure hypercholesterolemia, unspecified; I25.2 Old myocardial infarction
CPT/HCPCS: 74177; 80048; 80053; 81001; 82010; 82565; 82948; 83036; 83690; 84520; 85025; 93005; 96374; 96375; 99285; G0378; J1650; J1815; J2405; J7030; J7040; Q9967

== ENCOUNTER 2017-02-04 01:55 | Emergency (ER) | payer OTHER ==
[~2017-02-04 01:55] MED LIST: AMLO10TA2 PO; ASPI1TAB69 PO; ATOR40TA16 PO; CARV25TA PO; HYDR-3366 PO; LEVEMIR SQ; LISI-515 PO; NOVOLOGSS SQ
[2017-02-04 02:08] VITALS: BP 117/86; PULSE 69; RESP 18; TEMP 98.3; O2SAT 97
[2017-02-04] MEDS ORDERED: LEVEMIR SQ (02:23)
[2017-02-04] MEDS ORDERED: CARV6.252 PO (02:23)
[2017-02-04] MEDS ORDERED: SODIUM CHLOR 0.9% 1000 ML INJ 1,000 ML IV SCH (02:25)
[2017-02-04] MEDS ORDERED: MORPHINE SULFATE 4 MG/ML INJ IV PUSH ONE (02:30)
[2017-02-04] MEDS ORDERED: SODIUM CHLORIDE 0.9% FLUSH 10 ML FLUSH IV FLUSH PRN (02:30)
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
[2017-02-04 03:35] VITALS: BP 122/82; PULSE 60; RESP 20; O2SAT 96
[2017-02-04] MEDS ORDERED: DIATRIZOATE MEGLUM/DIATRIZOATE SOD 9 ML CUP ONE (03:48)
[2017-02-04 04:03] LABS: AUTOMATED NEUTROPHIL # 9.3 TH/MM3 (1.8-7.7); BASOPHIL # 0.1 TH/MM3 (0-0.2); BASOPHIL % 0.7 % (0.0-2.0); EOSINOPHIL % 0.4 % (0.0-4.0); HEMATOCRIT 49.1 % (39.0-51.0); HEMO FLAGS DIFF FINAL; LYMPH % 12.2 % (9.0-44.0); LYMPHOCYTE # 1.4 TH/MM3 (1.0-4.8); MEAN CELL VOLUME 88.5 FL (80.0-100.0); MEAN CORPUSCULAR HEMOGLOBIN 29.3 PG (27.0-34.0); MEAN CORPUSCULAR HGB CONC 33.1 % (32.0-36.0); MONO % 4.8 % (0.0-8.0); NEUT % 81.9 % (16.0-70.0); PLATELET COUNT 232 TH/MM3 (150-450); RED BLOOD COUNT 5.55 MIL/MM3 (4.50-5.90); RED CELL DISTRIBUTION WIDTH 14.9 % (11.6-17.2); WHITE BLOOD COUNT 11.3 TH/MM3 (4.0-11.0)
[2017-02-04 04:20] LABS: ALT (GPT) 52 U/L (12-78); ANION GAP 11 MEQ/L (5-15); AST (GOT) 60 U/L (15-37); BICARBONATE 21.2 MEQ/L (21.0-32.0); BLOOD UREA NITROGEN 29 MG/DL (7-18); CHLORIDE 106 MEQ/L (98-107); GLOMERULAR FILTRATION RATE 49 ML/MIN (>89); POTASSIUM 3.9 MEQ/L (3.5-5.1); SODIUM (NA) 138 MEQ/L (136-145)
[2017-02-04 04:24] LABS: ALKALINE PHOSPHATASE 133 U/L (45-117); CREATINE KINASE 165 U/L (39-308)
[2017-02-04 04:37] LABS: CKMB 0.9 NG/ML (0.5-3.6)
[2017-02-04] MEDS ORDERED: IODIXANOL 320 MG/ML 10 ML VIAL (for Rad CT) IV ONE (05:00)
[2017-02-04] MEDS ORDERED: SODIUM CHLORID 0.9% 500 ML INJ 500 ML IV ONE (05:00)
--- NOTE | 2017-02-04 05:32 | RADRPT ---
EXAM DATE/TIME: 02/04/2017 04:57 [facility] COMPARISON: No previous studies available for comparison. INDICATIONS : Diffuse abdominal pain. IV CONTRAST: 47 cc Visipaque (iodixanol) IV ORAL CONTRAST: Prescribed oral contrast ingested. RADIATION DOSE: 19.91 CTDIvol (mGy) MEDICAL HISTORY : Cardiovascular disease. SURGICAL HISTORY : Pacemaker. L 5 fusion ENCOUNTER: Initial ACUITY: 1 day PAIN SCALE: 7/10 LOCATION: abdomen TECHNIQUE: Volumetric scanning of the abdomen and pelvis was performed. Using automated exposure control and ad justment of the mA and/or kV according to patient size, radiation dose was kept as low as reasonably achievable to obtain optimal diagnostic quality images. DICOM format image data is available electro nically for review and comparison. FINDINGS: LOWER LUNGS: The visualized lower lungs are clear. Pacemaker wires within the heart LIVER: Homogeneous density without lesion. There is no dilation of the biliary tree. Numerouscalcified gal lstones. SPLEEN: Normal size without lesion. PANCREAS: Within normal limits. KIDNEYS: Normal in size and shape. There is no mass, stone or hydronephrosis other than left-sided 4.6 x 3.8 centimeter cyst. ADRENAL GLANDS: Within normal limits. VASCULAR: There is no aortic aneurysm. BOWEL/MESENTERY: The stomach, small bowel, and colon demonstrate no acute abnormality. There is no free intraperitone al air or fluid. ABDOMINAL WALL: Within normal limits. RETROPERITONEUM: There is no lymphadenopathy. BLADDER: No wall thickening or mass. REPRODUCTIVE: Within normal limits. INGUINAL: There is no lymphadenopathy or hernia. MUSCULOSKELETAL: Some arthritic change of both sacroiliac joints. CONCLUSION: Normal examination. Numerous calcified gallstones. Nothing to suggest colitis is identified Min Tavarez MD on February 04, 2017 at 5:28 Board Certified Radiologist. This report was verified electronically.
[2017-02-04] MEDS ORDERED: SODIUM CHLOR 0.9% 1000 ML INJ 1,000 ML IV ONE (06:15)
[2017-02-04] MEDS ORDERED: REGL5TAB PO (06:17)
[2017-02-04] MEDS ORDERED: ZANTTAB PO (06:17)
[2017-02-04 06:21] LABS: BLOOD, URINE NEG (NEG); COMMENT (UR) CULT NOT INDICATED; CULTURE IF INDICATED CULT NOT INDICATED; GLUCOSE,URINE NEG (NEG); HYALINE CAST, URINE 25 /lpf (RARE); KETONE, URINE NEG (NEG); MUCUS URINE FEW /lpf (OCC); NITRITE,URINE NEG (NEG); URINE COLOR YELLOW (YELLW/STRAW)
[2017-02-04] MEDS ORDERED: ACETAMINOPHEN/HYDROcodone 325 MG/5 MG TAB PO ONE (06:30)
[2017-02-04 07:01] VITALS: BP 119/84
--- NOTE | 2017-02-04 13:30 | EKG ---
Date Performed: 02/04/2017 Time Performed: 03:26:00 PTAGE: 71 years EKG: ELECTRONIC ATRIAL PACEMAKER ELECTRONIC VENTRICULAR PACEMAKER ABNORMAL RHYTHM ECG NO PREVIOUS TRACING Compared to prior tracing no significant change DOCTOR: Vee Kerns Interpretating Date/Time 02/04/2017 13:23:53
== END 2017-02-04 07:29 | disposition home or self-care (01) ==
LOC: NEPE 01:55
DX: R10.33 Periumbilical pain (principal); R94.31 Abnormal electrocardiogram [ECG] [EKG]; E11.9 Type 2 diabetes mellitus without complications; Z79.4 Long term (current) use of insulin
CPT/HCPCS: 74177; 80053; 81001; 82550; 82552; 83690; 84484; 85025; 93005; 96374; 99285; J2270; J7030; J7040; Q9963; Q9967

== ENCOUNTER 2017-06-23 07:51 | Emergency (ER) | payer OTHER ==
[~2017-06-23] VITALS: Ht 182.9 cm; Wt 115.0 kg
[~2017-06-23 07:51] MED LIST changes: -ASPI1TAB69 PO; -CARV25TA PO; +CARV6.252 PO; -NOVOLOGSS SQ; +REGL5TAB PO; +ZANTTAB PO
[2017-06-23 07:58] VITALS: BP 126/83; PULSE 77; RESP 19; TEMP 98.2; O2SAT 98
[2017-06-23] MEDS ORDERED: ASPI-516 CHEW (08:02)
--- NOTE | 2017-06-23 08:12 | PD ---
HPI . Wrist pain Chief Complaint: Injury Time Seen by Provider: 08:01 Travel History International Travel<30 days: No Contact w/Intl Traveler<30days: No Traveled to known affect area: No History of Present Illness HPI This patient presents to us by [facility] with a chief complaint of left wrist pain. He fell 3 days ago and landed on his left hand. He has had pain in the left wrist since that time. He states that he called 911 today because he has run out of his hydrocodone. The patient was prescribed hydrocodone following release of left fifth trigger finger about 5 days ago. He states that the pain is worse since he ran out of the hydrocodone. He rates the pain 8/10. PFSH Past Medical History Blood Disorders: No Heart Rhythm Problems: No Cancer: No Cardiovascular Problems: Yes ([place]) High Cholesterol: Yes Chest Pain: No Congestive Heart Failure: No Diabetes: Yes Patient Takes Glucophage: No Diminished Hearing: No Endocrine: Yes Genitourinary: No Hypertension: Yes Immune Disorder: No Musculoskeletal: Yes (CHRONIC PAIN) Neurologic: No Psychiatric: No Reproductive: No Respiratory: No Myocardial Infarction: Yes Thyroid Disease: No Tetanus Vaccination: < 5 Years Influenza Vaccination: No Past Surgical History Abdominal Surgery: Yes (EXPLOR. LAP.) Cardiac Surgery: Yes (PACEMAKER) Neurologic Surgery: Yes (L5 FUSION) Other Surgery: Yes (back surgery, exploratory, PM) Social History Alcohol Use: No Tobacco Use: No Substance Use: No Allergies-Medications (Allergen,Severity, Reaction): Coded Allergies: No Known Allergies (Unverified Adverse Reaction, Unknown, 06/23/17) Reported Meds & Prescriptions Reported Meds & Active Scripts Active Reported Aspirin 81 Mg Chew 81 Mg CHEW DAILY Levemir Inj (Insulin Detemir) 1,000 unit/ 10 ML Vial 40 Units SQ HS Do not mix with any other Insulin. Carvedilol 6.25 Mg Tab 6.25 Mg PO BID [place] (Hydrocodone-Acetaminophen) 10-325 Mg Tab 1 Tab PO TID PRN Atorvastatin (Atorvastatin Calcium) 40 Mg Tab 40 Mg PO HS Amlodipine (Amlodipine Besylate) 10 Mg Tab 10 Mg PO DAILY Lisinopril 20 Mg Tab 20 Mg PO DAILY Review of Systems Except as stated in HPI: all other systems reviewed are Neg Musculoskeletal: Positive: Arthralgias, Limited ROM Physical Exam Narrative GENERAL: Awake and alert and in no acute distress. SKIN: Warm and dry. Incision on the palm of the left hand over the fifth MCP joint looks good. There is no drainage. There is no erythema or warmth. The entire left hand is swollen. HEAD: Normocephalic/atraumatic. EYES: Pupils are equal. Extraocular movements are intact. NECK: Normal range of motion. CARDIOVASCULAR: Regular rate and rhythm. RESPIRATORY: Nonlabored respirations. MUSCULOSKELETAL: Tender at the tip of the left ulna. No gross deformity. Range of motion is limited. NEUROLOGICAL: Nonfocal. PSYCHIATRIC: Appropriate mood and affect. Data Data Last Documented VS Vital Signs Date Time Temp Pulse Resp B/P (MAP) Pulse Ox O2 Delivery O2 Flow Rate FiO2 06/23/17 07:58 98.2 77 19 126/83 (97) 98 Orders Orders Wrist, Complete ([id number]) (06/23/17 08:01) [facility] Medical Decision Making Medical Screen Exam Complete: Yes Emergency Medical Condition: Yes Medical Record Reviewed: Yes (review of previous labs shows that he does not have good renal function.) Differential Diagnosis Differential diagnosis of extremity trauma includes but is not limited to fracture, sprain or strain, dislocation, contusion Narrative Course Patient presents 3 days following a fall with an injury to his left wrist. He is tender at the distal ulna. X-ray is pending. L wrist X-ray: 3 views left wrist. Old distal radius and ulna fracture deformities. 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 No evidence of acute fracture. Because of his poor renal function, a NSAIA is contraindicated. I will give him a prescription for 15 Ultram. Diagnosis Primary Impression: Left wrist pain Patient Instructions: General Instructions, Sprain (DC) Med/Other Pt SpecificInfo: Prescription(s) given Scripts Tramadol (Ultram) 50 Mg Tab 50 MG PO Q4H Y for PAIN, #15 TAB 0 Refills Prov: Viki Metzger MD 06/23/17 Disposition: 01 DISCHARGE HOME Condition: Stable Viki Metzger MD Jun 23, 2017 08:12
--- NOTE | 2017-06-23 08:26 | RADRPT ---
EXAM DATE/TIME: 06/23/2017 08:08 [facility] COMPARISON: No previous studies available for comparison. INDICATIONS : Left wrist pain and swelling. Patient fell three days ago. MEDICAL HISTORY : Prior left wrist fracture. SURGICAL HISTORY : Recent trigger finger release. ENCOUNTER: Initial ACUITY: 3 days PAIN SCORE: 10/10 LOCATION: Left wrist. FINDINGS: 3 views left wrist. Old distal radius and ulna fracture deformities. 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 No evidence of acute fracture. CONCLUSION: No acute fracture. Arnoldo Jackson MD on June 23, 2017 at 8:24 Board Certified Radiologist. This report was verified electronically.
[2017-06-23] MEDS ORDERED: TRAM50 PO (08:35)
== END 2017-06-23 08:48 | disposition home or self-care (01) ==
LOC: NEPC 07:51
DX: M25.532 Pain in left wrist (principal); E78.00 Pure hypercholesterolemia, unspecified; E11.9 Type 2 diabetes mellitus without complications; I10 Essential (primary) hypertension; I25.2 Old myocardial infarction; G89.29 Other chronic pain; Z95.0 Presence of cardiac pacemaker; Z79.82 Long term (current) use of aspirin; Z79.4 Long term (current) use of insulin
CPT/HCPCS: 73110; 99283

== ENCOUNTER 2018-01-06 14:28 | Emergency (ER) | payer OTHER, MEDICAID ==
[~2018-01-06] VITALS: Ht 182.9 cm; Wt 115.0 kg
[~2018-01-06 14:28] MED LIST changes: +ASPI-516 CHEW; -REGL5TAB PO; +TRAM50 PO; -ZANTTAB PO
[2018-01-06 14:32] VITALS: BP 133/72; PULSE 78; RESP 16; TEMP 98.3; O2SAT 97
[2018-01-06] MEDS ORDERED: SODIUM CHLOR 0.9% 1000 ML INJ 1,000 ML IV SCH (15:12)
[2018-01-06] MEDS ORDERED: SODIUM CHLORIDE 0.9% FLUSH 10 ML FLUSH IVF PRN (15:15)
--- NOTE | 2018-01-06 15:16 | PD ---
HPI Chief Complaint: Abdominal Pain Time Seen by Provider: 15:08 Travel History International Travel<30 days: No Contact w/Intl Traveler<30days: No Traveled to known affect area: No History of Present Illness HPI 72 YO M with PMH of HTN, CAD, chronic back pain presents to the ED for evaluation of 1 week history of sharp epigastric abdominal pain. Gradual onset. No alleviating or exacerbating factors reported. Accompanied by loose, dark stools. Patient endorses one episode of nausea and vomiting. No nausea on presentation. He endorses history of colonoscopy 1 year ago. He endorses history of exploratory laparotomy. He denies alcohol use. He denies chest pain , palpitations, shortness of breath. He states that he treated with multiple OTC medications including Pepto-Bismol. He states that the dark stools began before he started taking this medication. PFSH Past Medical History Hx Anticoagulant Therapy: Yes (81MG ASA) Blood Disorders: No Heart Rhythm Problems: No Cancer: No Cardiovascular Problems: Yes ([place]) High Cholesterol: Yes Chest Pain: No Congestive Heart Failure: No Diabetes: Yes Patient Takes Glucophage: No Diminished Hearing: No Endocrine: Yes Genitourinary: No Hypertension: Yes Immune Disorder: No Musculoskeletal: Yes (CHRONIC PAIN) Neurologic: No Psychiatric: No Reproductive: No Respiratory: No Myocardial Infarction: Yes Thyroid Disease: No Past Surgical History Abdominal Surgery: Yes (EXPLOR. LAP.) Cardiac Surgery: Yes (PACEMAKER) Neurologic Surgery: Yes (L5 FUSION) Other Surgery: Yes (back surgery, exploratory, PM) Social History Alcohol Use: No Tobacco Use: No Substance Use: No Allergies-Medications (Allergen,Severity, Reaction): Coded Allergies: No Known Allergies (Unverified Adverse Reaction, Unknown, 01/06/18) Reported Meds & Prescriptions Reported Meds & Active Scripts Active Protonix (Pantoprazole Sodium) 40 Mg Tab 40 Mg PO DAILY Ultram (Tramadol HCl) 50 Mg Tab 50 Mg PO Q4H PRN Reported Aspirin 81 Mg Chew 81 Mg CHEW DAILY Levemir Inj (Insulin Detemir) 1,000 unit/ 10 ML Vial 40 Units SQ HS Do not mix with any other Insulin. Carvedilol 6.25 Mg Tab 6.25 Mg PO BID [place] (Hydrocodone-Acetaminophen) 10-325 Mg Tab 1 Tab PO TID PRN Atorvastatin (Atorvastatin Calcium) 40 Mg Tab 40 Mg PO HS Amlodipine (Amlodipine Besylate) 10 Mg Tab 10 Mg PO DAILY Lisinopril 20 Mg Tab 20 Mg PO DAILY Review of Systems Except as stated in HPI: all other systems reviewed are Neg Physical Exam Narrative GENERAL: Well-nourished, well-developed nontoxic-appearing -[place] male no acute distress. SKIN: Focused skin assessment warm/dry. Well-healed midline scar of the lumbar spine. No signs of infection. HEAD: Normocephalic. EYES: No scleral icterus. No injection or drainage. NECK: Supple, trachea midline. No JVD or lymphadenopathy. CARDIOVASCULAR: Regular rate and rhythm without murmurs, gallops, or rubs. RESPIRATORY: Breath sounds clear and equal bilaterally. No accessory muscle use. GASTROINTESTINAL: Abdomen soft, nondistended. Tender to palpation in the epigastric region. Active bowel sounds. No palpable masses. MUSCULOSKELETAL: No cyanosis, or edema. BACK: Nontender without obvious deformity. No CVA tenderness. Data Data Last Documented VS Vital Signs Date Time Temp Pulse Resp B/P (MAP) Pulse Ox O2 Delivery O2 Flow Rate FiO2 01/06/18 15:56 14 98 Room Air 01/06/18 14:32 98.3 78 133/72 (92) Orders Orders Complete Blood Count With Diff (01/06/18 15:12) Comprehensive Metabolic Panel (01/06/18 15:12) Lipase (01/06/18 15:12) Prothrombin Time / Inr (Pt) (01/06/18 15:12) Act Partial Throm Time (Ptt) (01/06/18 15:12) Type And Screen (01/06/18 15:12) Ecg Monitoring (01/06/18 15:12) Iv Access Insert/Monitor (01/06/18 15:12) Oximetry (01/06/18 15:12) Sodium Chlor 0.9% 1000 Ml Inj (Ns 1000 M (01/06/18 15:12) Sodium Chloride 0.9% Flush (Ns Flush) (01/06/18 15:15) Pantoprazole Inj (Protonix Inj) (01/06/18 16:30) Ct Abd/Pel W Iv Contrast(Rout) (01/06/18 16:54) Iohexol 350 Inj (Omnipaque 350 Inj) (01/06/18 17:33) Ed Discharge Order (01/06/18 18:33) Labs Laboratory Tests Test 01/06/18 15:32 White Blood Count 8.6 TH/MM3 Red Blood Count 5.36 MIL/MM3 Hemoglobin 16.4 GM/DL Hematocrit 46.9 % Mean Corpuscular Volume 87.4 FL Mean Corpuscular Hemoglobin 30.5 PG Mean Corpuscular Hemoglobin Concent 34.9 % Red Cell Distribution Width 14.6 % Platelet Count 226 TH/MM3 Mean Platelet Volume 9.4 FL Neutrophils (%) (Auto) 70.0 % Lymphocytes (%) (Auto) 19.4 % Monocytes (%) (Auto) 6.7 % Eosinophils (%) (Auto) 2.9 % Basophils (%) (Auto) 1.0 % Neutrophils # (Auto) 6.0 TH/MM3 Lymphocytes # (Auto) 1.7 TH/MM3 Monocytes # (Auto) 0.6 TH/MM3 Eosinophils # (Auto) 0.2 TH/MM3 Basophils # (Auto) 0.1 TH/MM3 CBC Comment DIFF FINAL Differential Comment Prothrombin Time 11.1 SEC Prothromb Time International Ratio 1.1 RATIO Activated Partial Thromboplast Time 29.1 SEC Blood Urea Nitrogen 29 MG/DL Creatinine 1.54 MG/DL Random Glucose 122 MG/DL Total Protein 7.5 GM/DL Albumin 3.7 GM/DL Calcium Level 9.0 MG/DL Alkaline Phosphatase 147 U/L Aspartate Amino Transf (AST/SGOT) 103 U/L Alanine Aminotransferase (ALT/SGPT) 58 U/L Total Bilirubin 1.3 MG/DL Sodium Level 140 MEQ/L Potassium Level 3.7 MEQ/L Chloride Level 108 MEQ/L Carbon Dioxide Level 20.7 MEQ/L Anion Gap 11 MEQ/L Estimat Glomerular Filtration Rate 54 ML/MIN Lipase 150 U/L [facility] Medical Decision Making Medical Screen Exam Complete: Yes Emergency Medical Condition: Yes Differential Diagnosis GERD versus PUD versus GI bleed versus dehydration versus anemia versus other Narrative Course 72 YO M with PMH of HTN, CAD, chronic back pain presents to the ED for evaluation of 1 week history of sharp epigastric abdominal pain. Accompanied by loose, dark stools. He endorses history of colonoscopy 1 year ago. He endorses history of exploratory laparotomy. He denies alcohol use. Denies cardiac review of systems. Vitals reviewed. Physical exam reveals a pleasant -[place] male in no acute distress. There is some epigastric tenderness on exam. Guaiac is faintly positive. IV was established. Patient was administered 1 L normal saline, 40 mg of Protonix. CBC: WBC 8.6. Hemoglobin 16.4. INR 1.1. CMP: BUN 29, creatinine 1.54. Chronic per record review. Bilirubin is elevated to 1.3. AST 103. ALT 58. Lipase 150. I discussed the results of the workup with the patient. I rechecked the right upper quadrant, no tenderness to palpation there. Patient is established with the telephone order dispatcher. I recommended that he follow-up this week for outpatient colonoscopy. Patient's agreeable with this plan. He is provided with a short course of Protonix, given explicit strict instructions to return should symptoms worsen. He indicated understanding of the instructions. He is stable and discharged home. [facility] Point of Care Internal Pos. & Neg. Controls: Passed Fecal Specimen Occult Blood: Positive Diagnosis Primary Impression: Epigastric pain Additional Impression: GI bleeding Qualified Codes: K92.2 - Gastrointestinal hemorrhage, unspecified Referrals: Engineering Drafter Additional Instructions: Rest, hydrate. Begin Protonix tomorrow as prescribed. Call your telephone order dispatcher tomorrow morning for a follow-up appointment within the next week to 10 days. Eat a bland diet for the next few days and gradually reintroduce normal foods. Follow-up with the telephone order dispatcher as discussed. Return to the ED for worsening symptoms or any urgent or emergent medical condition. Med/Other Pt SpecificInfo: Prescription(s) given Scripts Pantoprazole (Protonix) 40 Mg Tab 40 MG PO DAILY for Reflux, #30 TAB 0 Refills Prov: Radha Ulloa MD 01/06/18 Disposition: 01 DISCHARGE HOME Condition: Stable Corina Willis Jan 06, 2018 15:16
[2018-01-06 15:56] VITALS: RESP 14; O2SAT 98
[2018-01-06 16:15] LABS: BASOPHIL # 0.1 TH/MM3 (0-0.2); EOSINOPHIL # 0.2 TH/MM3 (0-0.4); EOSINOPHIL % 2.9 % (0.0-4.0); HEMATOCRIT 46.9 % (39.0-51.0); HEMOGLOBIN 16.4 GM/DL (13.0-17.0); LYMPH % 19.4 % (9.0-44.0); LYMPHOCYTE # 1.7 TH/MM3 (1.0-4.8); MEAN CELL VOLUME 87.4 FL (80.0-100.0); MEAN CORPUSCULAR HEMOGLOBIN 30.5 PG (27.0-34.0); MEAN CORPUSCULAR HGB CONC 34.9 % (32.0-36.0); MEAN PLATELET VOLUME 9.4 FL (7.0-11.0); MONO % 6.7 % (0.0-8.0); MONOCYTE # 0.6 TH/MM3 (0-0.9); PLATELET COUNT 226 TH/MM3 (150-450); RED BLOOD COUNT 5.36 MIL/MM3 (4.50-5.90); RED CELL DISTRIBUTION WIDTH 14.6 % (11.6-17.2); WHITE BLOOD COUNT 8.6 TH/MM3 (4.0-11.0)
[2018-01-06 16:21] LABS: INTERNATIONAL NORMALIZED RATIO 1.1 RATIO; PROTHROMBIN TIME - PATIENT 11.1 SEC (9.8-11.6)
[2018-01-06] MEDS ORDERED: PANTOPRAZOLE SODIUM 40 MG VIAL IVP ONE (16:30)
[2018-01-06 16:43] LABS: ALT (GPT) 58 U/L (12-78)
[2018-01-06 16:45] LABS: ALKALINE PHOSPHATASE 147 U/L (45-117); TOTAL BILIRUBIN ADULT 1.3 MG/DL (0.2-1.0); TOTAL PROTEIN 7.5 GM/DL (6.4-8.2)
[2018-01-06 16:46] LABS: ALBUMIN 3.7 GM/DL (3.4-5.0); AST (GOT) 103 U/L (15-37); BICARBONATE 20.7 MEQ/L (21.0-32.0); BLOOD UREA NITROGEN 29 MG/DL (7-18); CHLORIDE 108 MEQ/L (98-107); CREATININE 1.54 MG/DL (0.60-1.30); GLOMERULAR FILTRATION RATE 54 ML/MIN (>89); GLUCOSE,RANDOM 122 MG/DL (74-106); SODIUM (NA) 140 MEQ/L (136-145)
[2018-01-06] MEDS ORDERED: IOHEXOL 350 MG/ML 10 ML VIAL (for RAD DIAG) IVCONTRAST ONE (17:33)
--- NOTE | 2018-01-06 17:40 | RADRPT ---
EXAM DATE: 01/06/2018 5:32 PM EDT AGE/SEX: 72 years / Male INDICATIONS: Abdomen pain for 1 week with diarrhea CLINICAL DATA: This is the patient's initial encounter. Patient reports that signs and symptoms have been present for 1 week and indicates a pain score of 6/10. MEDICAL/SURGICAL HISTORY: Cardiovascular disease. Hypertension. Diabetes. None. ORAL CONTRAST: No oral contrast ingested. RADIATION DOSE: 12.60 CTDI (mGy) COMPARISON: [facility] [place] & PELVIS W [place]AST, 02/04/2017. [facility] [place] & PELVIS W CONTRAST, 10/10/2016. . TECHNIQUE: Multiple contiguous axial images were obtained through the abdomen and pelvis following b olus infusion of 94 ml Omnipaque 350 (iohexol) nonionic water-soluble contrast as a single exam dos e. No oral contrast ingested. Using automated exposure control and adjustment of the mA and/or kV ac cording to patient size, the radiation dose was kept as low as reasonably achievable to obtain optima l diagnostic quality images. FINDINGS: Lower Lungs: The visualized lower lungs are clear. Liver: The liver has a homogeneous density without space-occupying lesion. There is no dilation of th e biliary tree. Multiple calcified gallstones are noted within the gallbladder lumen. Spleen: Homogeneous density without enlargement. Pancreas: Unremarkable without mass or calcification. Kidneys: There are stable left renal cysts with the largest measuring 4.9 cm. Cortical scarring is n oted bilaterally. No hydronephrosis or solid renal mass is noted. Adrenal Glands: The adrenal glands are prominent in size bilaterally consistent with probable adren al hyperplasia. Aorta: The aorta and proximal iliac vessels are grossly unremarkable without aneurysmal dilation. Bowel/Mesentery: Uncomplicated colonic diverticulosis is noted. No acute diverticulitis is noted. Abdominal Wall: Intact. Retroperitoneum: No evidence of adenopathy in the retrocrural, para-aortic, or deep pelvic regions. Bladder: Contours are smooth. Reproductive Organs: The prostate gland remains mildly prominent. Inguinal: The inguinal region is unremarkable without evidence of adenopathy. Bony Structures: Degenerative changes are noted throughout the lumbar spine.. CONCLUSION: 1. Cholelithiasis. 2. Uncomplicated colonic diverticulosis. 3. Enlarged prostate. 4. Prominent adrenal glands bilaterally suggesting adrenal hyperplasia. 5. Stable left renal cysts. 6. Stable renal cortical scarring bilaterally. 7. Degenerative changes throughout the lumbar spine. Electronically signed by: Charbel Phoenix MD 01/06/2018 5:39 PM EDT
[2018-01-06] MEDS ORDERED: PROT40TA PO (18:32)
== END 2018-01-06 19:00 | disposition home or self-care (01) ==
LOC: NEPE 14:28
DX: K92.2 Gastrointestinal hemorrhage, unspecified (principal); K80.20 Calculus of gallbladder without cholecystitis without obstruction; K57.30 Diverticulosis of large intestine without perforation or abscess without bleeding; N40.0 Benign prostatic hyperplasia without lower urinary tract symptoms; N28.1 Cyst of kidney, acquired; M51.36 Other intervertebral disc degeneration, lumbar region; I10 Essential (primary) hypertension; I25.10 Atherosclerotic heart disease of native coronary artery without angina pectoris; E11.9 Type 2 diabetes mellitus without complications
CPT/HCPCS: 74177; 80053; 83690; 85025; 85610; 85730; 86850; 86900; 86901; 96361; 96374; 99285; C9113; J7030; Q9967